=== PATIENT | male | born 1955 | race Caucasian/White ===

== ENCOUNTER 2017-02-21 12:35 | Emergency (ER) | payer SELFPAY ==
[~2017-02-21] VITALS: Ht 165.1 cm; Wt 75.0 kg
[2017-02-21 12:42] VITALS: TEMP 36.8; Ht 165.1 cm; Wt 75.0 kg
[2017-02-21] MEDS ORDERED: ASPI81TA28 PO (13:24)
[2017-02-21] MEDS ORDERED: PREG1CAP28 PO (13:24)
[2017-02-21] MEDS ORDERED: ESOM20CA PO (13:24)
[2017-02-21] MEDS ORDERED: PENT400T7 PO (13:24)
[2017-02-21] MEDS ORDERED: LISI-461 PO (13:24)
[2017-02-21] MEDS ORDERED: GLC500 PO (13:24)
[2017-02-21] MEDS ORDERED: DICL-201 PO (13:24)
[2017-02-21] MEDS ORDERED: B-CO1CAP3 PO (13:24)
[2017-02-21] MEDS ORDERED: KETOROLAC TROMETHAMINE 30 MG/ML VIAL IV STA (13:45)
--- NOTE | 2017-02-21 14:15 | EMERGENCY ROOM VISIT NOTE ---
History Report prepared by Neal: Kvng Arriola Under the Supervision of: Dr. Osmin Hudson M.D. First contact with patient: 13:21 Chief Complaint: BACK PAIN Stated Complaint: PAIN IN THE LEFT BACK History of Present Illness The patient is a 61 year old male who presents to the Emergency Room with complaints of constant left sided back pain starting three weeks ago. He rates his discomfort as a 4/10 in severity. The patient states that the pain is worsened with movement. He describes the pain as a pinching sensation. The patient states that within the last couple of weeks he started to intermittently experience left sided pain after hours of sitting. He describes the sensation as cramping. The patient states that the pain lasts for 15-20 minutes. He denies chest pain, shortness of breath, dyspnea, and leg pain or swelling. The patient reports a history of Diabetes Mellitus and reports he has been taking insulin. He denies a history of blood clots. The patient states that he recently traveled here from [facility]. Source of History: patient Onset: three weeks ago Position: back Symptom Intensity: 4/10 Quality: other (pinching) Timing: constant Modifying Factors (Worsening): movement Associated Symptoms: No chest pain, No SOB Note: Associated symptoms: left sided pain. Review of Systems See HPI for pertinent positives & negatives. A total of 10 systems reviewed and were otherwise negative. Past Medical & Surgical Medical Problems: (1) Diabetes (2) Heart disease (3) HTN (hypertension) Surgical Problems: (1) Appendicitis Old medical records were reviewed. Nurse's notes were reviewed and I agree with. Family History Diabetes mellitus FH: heart disease FHx: cancer Hypertension Seizures Social History Smoking Status: Never Smoker Smokeless Tobacco Use: No Alcohol Use: occasionally Drug Use: none Housing Status: lives with family Occupation Status: retired Current/Historical Medications Scheduled Aspirin (Aspirin Ec), 81 MG PO DAILY B-Complex Vitamins (B Complex), 1 CAP PO TID Diclofenac (Voltaren), 75 MG PO BID Esomeprazole Magnesium (Nexium), 20 MG PO DAILY Lisinopril (Zestril), 10 MG PO DAILY Metformin HCl (Metformin HCl), 500 MG PO TID Pentoxifylline (Trental), 400 MG PO TID Pregabalin (Lyrica), 75 MG PO TID Allergies Coded Allergies: No Known Allergies (Unverified , 1/2/18) Physical Exam Vital Signs Date Time Temp Pulse Resp B/P (MAP) Pulse Ox O2 Delivery O2 Flow Rate FiO2 02/21/17 16:44 80 16 161/75 93 02/21/17 15:30 83 20 155/83 96 Room Air 02/21/17 15:00 79 19 156/81 96 Room Air 02/21/17 14:17 78 20 168/91 98 Room Air 02/21/17 12:57 76 02/21/17 12:42 36.8 75 20 160/75 98 Room Air Physical Exam General: Non-ill appearing older male in no acute distress. HEENT: Normal cephalic atraumatic. Pupils are equal round and reactive to light. Extraocular movements are intact. Oropharynx is pink with moist mucous membranes. No swelling of the mouth lips or tongue. Neck: Supple with a midline trachea. No meningeal signs or stiffness, no JVD or bruits. No Stridor. Chest: Clear to auscultation bilaterally. No wheezes or rhonchi. No increased work of breathing. Heart: regular rate and rhythm. Abdomen: Soft nontender, nondistended without rebound guarding or rigidity. Extremities: No cyanosis clubbing or edema. No calf tenderness or assymetry Spine/Back. Tender to palpation to left posterior shoulder/ thoracic spine. Pain exacerbated with palpation and movement. No CVA tenderness Skin: Good turgor without rashes. Neurologic exam: Cranial nerves two through 12 are intact. Motor and sensation are intact and symmetrical throughout. Medical Decision & Procedures ER Provider Diagnostic Interpretation: X-ray results as stated below per interpretation by me and the radiologist: CHEST ONE VIEW PORTABLE CLINICAL HISTORY: 61 years-old Male presenting with CHEST PAIN. TECHNIQUE: Portable upright AP view of the chest was obtained. COMPARISON: None. FINDINGS: Mildly low lung volumes with hypoventilatory changes resulting mild prominence of the cardiac silhouette. No focal infiltrate. No large effusion or pneumothorax. Osseous structures normal. Upper abdomen normal. IMPRESSION: 1. Mildly low lung volumes. Otherwise no acute cardiopulmonary disease. Electronically signed by: Jose Green M.D. 02/21/2017 2:22 PM Dictated Date/Time: 02/21/2017 2:21 PM Laboratory Results 02/21/17 14:00 Red Blood Count 5.35, Mean Corpuscular Volume 65.6, Mean Corpuscular Hemoglobin 21.9, Mean Corpuscular Hemoglobin Concent 33.3, Neutrophils (%) (Auto) 53.6, Lymphocytes (%) (Auto) 36.0, Monocytes (%) (Auto) 6.9, Eosinophils (%) (Auto) 2.8, Basophils (%) (Auto) 0.5, Neutrophils # (Auto) 2.32, Lymphocytes # (Auto) 1.56, Monocytes # (Auto) 0.30, Eosinophils # (Auto) 0.12, Basophils # (Auto) 0.02 02/21/17 14:00 Test 02/21/17 14:00 02/21/17 14:02 White Blood Count 4.33 K/uL (4.8-10.8) Red Blood Count 5.35 M/uL (4.7-6.1) Hemoglobin 11.7 g/dL (14.0-18.0) Hematocrit 35.1 % (42-52) Mean Corpuscular Volume 65.6 fL (80-100) Mean Corpuscular Hemoglobin 21.9 pg (25-34) Mean Corpuscular Hemoglobin Concent 33.3 g/dl (32-36) Platelet Count 182 K/uL (130-400) Neutrophils (%) (Auto) 53.6 % Lymphocytes (%) (Auto) 36.0 % Monocytes (%) (Auto) 6.9 % Eosinophils (%) (Auto) 2.8 % Basophils (%) (Auto) 0.5 % Neutrophils # (Auto) 2.32 K/uL (1.4-6.5) Lymphocytes # (Auto) 1.56 K/uL (1.2-3.4) Monocytes # (Auto) 0.30 K/uL (0.11-0.59) Eosinophils # (Auto) 0.12 K/uL (0-0.5) Basophils # (Auto) 0.02 K/uL (0-0.2) RDW Standard Deviation 34.2 fL (36.4-46.3) RDW Coefficient of Variation 14.7 % (11.5-14.5) Immature Granulocyte % (Auto) 0.2 % Immature Granulocyte # (Auto) 0.01 K/uL (0.00-0.02) Microcytosis PRESENT D-Dimer 390 ug/L FEU (0-500) Anion Gap 5.0 mmol/L (3-11) Est Creatinine Clear Calc Drug Dose 59.1 ml/min Estimated GFR () 73.4 Estimated GFR (Non- 63.3 BUN/Creatinine Ratio 23.4 (10-20) Calcium Level 9.1 mg/dl (8.5-10.1) Total Bilirubin 0.3 mg/dl (0.2-1) Direct Bilirubin < 0.1 mg/dl (0-0.2) Aspartate Amino Transf (AST/SGOT) 18 U/L (15-37) Alanine Aminotransferase (ALT/SGPT) 29 U/L (12-78) Alkaline Phosphatase 92 U/L (45-117) Total Creatine Kinase 271 U/L (39-308) Creatine Kinase MB 4.2 ng/ml (0.5-3.6) Creatine Kinase MB Ratio 1.5 (0-3.0) Total Protein 6.9 gm/dl (6.4-8.2) Albumin 3.2 gm/dl (3.4-5.0) Lipase 1907 U/L (73-393) Bedside Troponin I < 0.030 ng/ml (0-0.045) Laboratory studies as stated above per my review. Medications Administered Medications (Trade) Dose Ordered Sig/Geena Route Start Time Stop Time Status Last Admin Dose Admin Ketorolac Tromethamine (Toradol Inj) 30 mg NOW STAT IV 02/21/17 13:45 02/21/17 13:50 DC 02/21/17 14:17 30 MG ECG Indication: back/shoulder pain Rate (beats per minute): 75 Rhythm: normal sinus Findings: no acute ischemic change, left axis deviation, other (PRWP) Comparison ECG Date: no prior available ED Course 1322: Past medical records reviewed. The patient was evaluated in room B03B, and a complete history and physical examination were performed. 1345: Ordered Toradol Injection 30 mg IV. 1544: 1435: I reevaluated the patient and he is doing well. The patient is not experiencing abdominal pain or nausea. I discussed the possibility of a CT. He reports he would like to go home. His lipase was elevated. I discussed the treatment plan, which he understands and agrees to. The patient is ready for discharge. Medical Decision Differentials include, but are not limited to; musculoskeletal pain, cardiac disease, PE, infection, electrolyte or metabolic abnormality. This patient comes in as described above. She was placed in room B3. He is here for treatment and evaluation of left posterior shoulder. He may have injured this a couple weeks worse with movement has no lower back pain. No chest pain. No numbness or weakness. EKG does not show anything to suggest any ischemic changes or arrhythmia. His troponin is not elevated. D-dimer is within normal limits and in a low pretest probability study makes PE highly unlikely. Chest x-ray was unremarkable. He has nothing to suggest acute electrolyte or metabolic abnormalities. His lipase was moderately elevated and I offered to do a CAT scan of his abdomen that he declined. He's had no abdominal pain or nausea or back pain in the mid to lower back to suggest pancreatitis. He has nothing to suggest a follow-up he should return if: worsening of symptoms, fever or chills, numbness or weakness, any problems concerns. He was happy with the plan discharged to home. Medication Reconcilliation Current Medication List: was personally reviewed by me Blood Pressure Screening Patient's blood pressure: Elevated blood pressure Blood pressure disposition: Elevated BP felt to be situational Impression Primary Impression: Left shoulder pain Scribe Attestation The scribe's documentation has been prepared under my direction and personally reviewed by me in its entirety. I confirm that the note above accurately reflects all work, treatment, procedures, and medical decision making performed by me. Departure Information Dispostion Home / Self-Care Referrals No Doctor, Assigned (PCP) Forms HOME CARE DOCUMENTATION FORM, IMPORTANT VISIT INFORMATION Patient Instructions My [facility] Additional Instructions Rest. Drink plenty of fluids. Use ibuprofen 400 mg every 6 hours, take with food Return if: increasing pain, shortness of breath, fever or chills, any new problems concerns. Follow-up with your doctor for recheck when you get home Your lipase is mildly elevated and staying so you should have this rechecked when you go home. Return to ER if he has abdominal pain, nausea vomiting, or back pain.
--- NOTE | 2017-02-21 14:24 | DIAGNOSTIC IMAGING REPORT ---
CHEST ONE VIEW PORTABLE CLINICAL HISTORY: 61 years-old Male presenting with CHEST PAIN. TECHNIQUE: Portable upright AP view of the chest was obtained. COMPARISON: None. FINDINGS: Mildly low lung volumes with hypoventilatory changes resulting mild prominence of the cardiac silhouette. No focal infiltrate. No large effusion or pneumothorax. Osseous structures normal. Upper abdomen normal. IMPRESSION: 1. Mildly low lung volumes. Otherwise no acute cardiopulmonary disease. Electronically signed by: Jose Green M.D. 02/21/2017 2:22 PM Dictated Date/Time: 02/21/2017 2:21 PM
[2017-02-21 14:32] LABS: BASO % 0.5 %; BASO ABS # 0.02 K/uL (0-0.2); EOS % 2.8 %; EOS ABS # 0.12 K/uL (0-0.5); HEMATOCRIT 35.1 % (42-52); HEMOGLOBIN 11.7 g/dL (14.0-18.0); IG# 0.01 K/uL (0.00-0.02); LYMPH ABS # 1.56 K/uL (1.2-3.4); MEAN CELL VOLUME 65.6 fL (80-100); MEAN CORPUSCULAR HEMOGLOBIN 21.9 pg (25-34); MEAN CORPUSCULAR HGB CONC 33.3 g/dl (32-36); MONO % 6.9 %; NEUT % 53.6 %; NEUT ABS # 2.32 K/uL (1.4-6.5); PLATELET COUNT 182 K/uL (130-400); RED CELL DISTRIBUTION WIDTH CV 14.7 % (11.5-14.5); RED CELL DISTRIBUTION WIDTH SD 34.2 fL (36.4-46.3); WHITE BLOOD COUNT 4.33 K/uL (4.8-10.8)
[2017-02-21 14:49] LABS: CALCIUM 9.1 mg/dl (8.5-10.1); CREATININE 1.21 mg/dl (0.60-1.40); POTASSIUM 4.3 mmol/L (3.5-5.1)
[2017-02-21 15:55] LABS: ALBUMIN 3.2 gm/dl (3.4-5.0); ALKALINE PHOSPHATASE 92 U/L (45-117); ALT/SGPT 29 U/L (12-78); AST/SGOT 18 U/L (15-37); CKMB 4.2 ng/ml (0.5-3.6); LIPASE 1907 U/L (73-393); TOTAL PROTEIN 6.9 gm/dl (6.4-8.2)
[2017-02-21 16:44] VITALS: BP 161/75; PULSE 80; O2SAT 93
== END 2017-02-21 16:29 | disposition home or self-care (01) ==
LOC: C.EDB 12:48
DX: M25.512 Pain in left shoulder (principal); E11.9 Type 2 diabetes mellitus without complications; Z79.4 Long term (current) use of insulin; I10 Essential (primary) hypertension; Z83.3 Family history of diabetes mellitus; Z80.9 Family history of malignant neoplasm, unspecified; Z82.49 Family history of ischemic heart disease and other diseases of the circulatory system; Z82.0 Family history of epilepsy and other diseases of the nervous system; Z79.82 Long term (current) use of aspirin; Z79.899 Other long term (current) drug therapy